=== PATIENT | male | born 1980 | race Hispanic/Latino ===

== ENCOUNTER → 2019-03-13 08:52 | Outpatient (CLI) | payer OTHER, SELFPAY ==
--- NOTE | 2019-03-13 | DI.RAD.S_ITS ---
PROCEDURE: XR LUMBAR SPINE 2-3V INDICATIONS: Lumbago with sciatica, unspecified side TECHNIQUE: 3 views of the lumbar spine were acquired. COMPARISON: None. FINDINGS: Bones: 5 [id number] vertebrae are present. There is normal bony alignment. No vertebral body compression fractures. No suspicious bony lesions. Soft tissues: Overlying bowel gas pattern is normal. No suspicious soft tissue calcifications. IMPRESSION: Normal for age, source of current sciatica symptoms is not seen. Dictated by: Rajesh Higgins M.D. on 03/13/2019 at 11:21 Approved by: Rajesh Higgins M.D. on 03/13/2019 at 11:22
== END ==
PROVIDERS: Visit Provider Chiropractor
DX: M54.40 Lumbago with sciatica, unspecified side (principal)
CPT/HCPCS: 72100